=== PATIENT | male | born 1995 | race Asian ===

== ENCOUNTER 2016-07-05 05:59 | Emergency (ER) | payer OTHER ==
[2016-07-05 06:46] VITALS: BP 133/90
== END 2016-07-05 06:46 | disposition home or self-care (01) ==
LOC: ED 05:59
DX: K91.840 Postprocedural hemorrhage of a digestive system organ or structure following a digestive system procedure (principal); R03.0 Elevated blood-pressure reading, without diagnosis of hypertension